=== PATIENT | male | born 1970 | race Hispanic/Latino ===

== ENCOUNTER 2018-05-20 10:09 | Emergency (ER) | payer BC, OTHER ==
[2018-05-20 10:14] VITALS: BMI 29.9
[2018-05-20 10:16] VITALS: RESP 17
--- NOTE | 2018-05-20 10:52 | ED PDOC ---
HPI: Headache Time Seen by Provider: 05/20/18 10:16 Chief Complaint (Nursing): Headache Chief Complaint (Provider): Headache History Per: Patient History/Exam Limitations: no limitations Additional Complaint(s): Patient is a 47 y/o male with history of cluster headaches and hypertension, who presents to the ED complaining of two separate problems: headache and anterior neck pain. Regarding the headaches, patient reports he used to see a neurologist regularly and multiple pior brain imaging including EEG, CT, and MRI which all were normal. Patient stopped having these symptoms about 4 years ago but still follows up with neurologist once a year. Last month he saw his neurologist and was discharged because he has been symptom free for x4 years. A week ago however he started to have headache at the back of his neck that radiates to the top of his head, and states that it is similar to the headaches he had in the past. He denies fever, URI, trauma, nausea, vomiting, photophobia , and sensitivity to sound. Regarding the neck pain, patient reports that it comes and goes, and is localized to the left side of the anterior neck. Patient states the pain lasts for a few minutes and resolves on its own sometimes it is associated with a headache sometimes its not. Patient wants to make sure its not heart related given family history of heart disease. He denies chest pain, shortness of breath, diaphoresis, or palpitations. Past Medical History Reviewed: Historical Data, Nursing Documentation, Vital Signs Vital Signs: Last Vital Signs Temp 98.5 F 05/20/18 10:20 Pulse 62 05/20/18 10:20 Resp 17 05/20/18 10:20 BP 133/84 05/20/18 10:20 Pulse Ox 99 05/20/18 10:20 - Medical History PMH: Anxiety, Gastritis, HTN, Migraine - Surgical History Surgical History: No Surg Hx - Family History Family History: States: [place] (Father - late 60s) - Social History Current smoker - smoking cessation education provided: No - Home Medications Home Medications: Ambulatory Orders Medication Instructions Recorded Alprazolam [Xanax] 0.25 mg PO PRN PRN 08/03/15 Dexlansoprazole [Dexilant] 30 mg PO DAILY 08/03/15 Lisinopril [Zestril] 20 mg PO DAILY 11/02/15 Nortriptyline Hydrochloride 10 mg PO DAILY 08/03/15 [Pamelor] amLODIPine [Norvasc] 10 mg PO DAILY 08/03/15 Aspirin [Aspirin EC] 81 mg PO DAILY #0 ect 08/04/15 - Allergies Allergies/Adverse Reactions: Allergies Allergy/AdvReac Type Severity Reaction Status Date / Time No Known Allergies Allergy Verified 11/09/14 21:03 Review of Systems ROS Statement: Except As Marked, All Systems Reviewed And Found Negative Constitutional: Negative for: Fever, Sweats Eyes: Negative for: Other (photophobia) ENT: Negative for: Other (sensitivity to sound) Cardiovascular: Positive for: Palpitations. Negative for: Chest Pain Respiratory: Negative for: Cough, Shortness of Breath Gastrointestinal: Negative for: Nausea, Vomiting Musculoskeletal: Positive for: Neck Pain Neurological: Positive for: Headache Physical Exam - Reviewed Nursing Documentation Reviewed: Yes Vital Signs Reviewed: Yes - Physical Exam Comments: GENERAL APPEARANCE: Patient is awake, alert, oriented x 3, in no acute distress. SKIN: Warm, dry; (-) cyanosis. EYES: (-) conjunctival pallor. ENMT: Mucous membranes moist. NECK: Supple, (-) thyromegaly, (-) masses, (-) tenderness, (-) stiffness, (-) lymphadenopathy, (-) JVD. CHEST AND RESPIRATORY: (-) rash, (-) chest wall tenderness. Lungs: (-) rales , (-) rhonchi, (-) wheezes, (-) rub; breath sounds equal bilaterally. HEART AND CARDIOVASCULAR: (-) irregularity; (-) murmur, (-) gallop, (-) rub. ABDOMEN AND GI: Soft; (-) distention, (-) tenderness, (-) palpable pulsatile mass. EXTREMITIES: (-) deformity; (-) edema, (-) calf tenderness. (+) distal pulses. NEURO AND PSYCH: Mental status as above. Cranial nerves grossly intact; strength symmetric. - Laboratory Results Result Diagrams: 05/20/18 11:10 05/20/18 12:10 - ECG O2 Sat by Pulse Oximetry: 99 (RA) Pulse Ox Interpretation: Normal Medical Decision Making Medical Decision Making: Time: 10:38 Impression: Headaches and neck pain Initial Plan: --EKG --CMP --Troponin I --CBC w/ diff --CXR Patient is refusing any analgesics for his headache states that he feels well at this time. CXR : NAD, as read by PA EKG : NSR at 53 bpm, T wave inversions in leads III and V1 which is old and not new compared to prior EKG on 08/03/15, as read by OTILIO Labs reviewed : trop (-) On re-evaluation, patient denies any chest pain, SOB. On exam, patient remains AAOx3, in no acute distress. Patient is cheerful and in good spirits. Repeat neuro exam shows no focal findings. VSS, patient is stable for discharge. Diagnostic results d/w the patient in great detail. Patient feels comfortable going home. Based on history, exam and diagnostic results, plan will be for outpatient follow up with pmd and his neurologist. Patient instructed to follow-up with pmd and neuro in 1-2 days without fail. Return to the emergency room at any time for any new or worsening symptoms. Patient states he fully agrees with and understands discharge instructions. States that he agrees with the plan and disposition. Verbalized and repeated discharge instructions and plan. I have given the patient opportunity to ask any additional questions. ----- Scribe Attestation: Documented by Arron Wright, acting as a scribe for Ana Rosa Yates PA-C. Provider Scribe Attestation: All medical record entries made by the Scribe were at my direction and personally dictated by me. I have reviewed the chart and agree that the record accurately reflects my personal performance of the history, physical exam, medical decision making, and the department course for this patient. I have also personally directed, reviewed, and agree with the discharge instructions and disposition. Disposition - Clinical Impression Clinical Impression: Headache, Neck pain - Patient ED Disposition Is Patient to be Admitted: No Counseled Patient/Family Regarding: Studies Performed, Diagnosis, Need For Followup - Disposition Disposition: Routine/Home Disposition Time: 12:30 Condition: STABLE Additional Instructions: Thank you for letting us take care of you today. You were treated for headache, neck pain. The emergency medical care you received today was directed towards the acute presenting symptoms. Return to the Emergency Department at any time if symptoms worsen, do not improve, or if any other problems arise. Please contact your primary care doctor and your neurologist in 2 days for re- evaluation and follow up. Bring any paperwork you were given at discharge with you along with any medications to your follow up visit. Our treatment cannot replace ongoing medical care by a primary care provider (PCP) outside of the emergency department. Thank you for allowing the [facility] team to be part of your care today. Instructions: Cluster Headache, Neck Pain Forms: [employer] (Kyrgyz) - PA / MANAGER UTILIZATION / Resident Statement MD/DO has reviewed & agrees with the documentation as recorded.
--- NOTE | 2018-05-20 11:56 | RAD ---
Date of service: 05/20/2018 PROCEDURE: CHEST RADIOGRAPH, 1 VIEW HISTORY: L side neck pain COMPARISON: 08/03/2015 FINDINGS: LUNGS: Clear. PLEURA: No pneumothorax or pleural fluid seen. CARDIOVASCULAR: Normal. OSSEOUS STRUCTURES: No significant abnormalities. VISUALIZED UPPER ABDOMEN: Normal. OTHER FINDINGS: None. IMPRESSION: No active disease.
[2018-05-20 11:59] LABS: BASO % 0.8 % (0.0-2.0); EOS # 0.3 K/uL (0.0-0.7); EOS % 5.1 % (0.0-4.0); HEMOGLOBIN 14.7 g/dL (12.0-18.0); LYMPH # 1.6 K/uL (1.0-4.3); LYMPH % 29.6 % (20.0-40.0); MEAN CELL VOLUME 92.6 fl (80.0-94.0); MEAN CORPUSCULAR HEMOGLOBIN 32.1 pg (27.0-31.0); MEAN CORPUSCULAR HGB CONC 34.6 g/dL (33.0-37.0); MONO # 0.4 K/uL (0.0-0.8); MONO % 7.6 % (0.0-10.0); NEUT % 56.9 % (50.0-75.0); NRBC % 0.1 % (0.0-0.0); RBC 4.58 Mil/uL (4.40-5.90); RED CELL DISTRIBUTION WIDTH 12.8 % (11.5-14.5); WHITE BLOOD COUNT 5.3 K/uL (4.8-10.8)
[2018-05-20 12:05] LABS: ALB/GLOB RATIO 1.4 (1.0-2.1); ALBUMIN 4.3 g/dL (3.5-5.0); ALT/SGPT 45 U/L (21-72); AST/SGOT 30 U/L (17-59); BLOOD UREA NITROGEN 12 mg/dl (9-20); CALCIUM 9.9 mg/dL (8.4-10.2); GFR AFRICAN-AMERICAN > 60; GFR NON-AFRICAN AMERICAN > 60
[2018-05-20 14:01] VITALS: BP 128/75; PULSE 76; TEMP 98; O2SAT 100
--- NOTE | 2018-05-20 22:45 | CARD ---
APPROVED REPORT Date of service: 05/20/2018 EKG Measurement Heart [id number] CT 188P21 [id number] <Conclusion> Sinus bradycardia Otherwise normal ECG
== END 2018-05-20 13:00 | disposition home or self-care (01) ==
LOC: H.ER 10:09
DX: R51 Headache (principal); M54.2 Cervicalgia; I10 Essential (primary) hypertension; Z79.82 Long term (current) use of aspirin

== ENCOUNTER 2018-06-29 18:26 | Emergency (ER) | payer OTHER ==
[2018-06-29 18:26] VITALS: BMI 29.9
[2018-06-29 19:00] VITALS: O2SAT 97
[2018-06-29 19:52] LABS: BASO % 0.6 % (0.0-2.0); EOS # 0.2 K/uL (0.0-0.7); EOS % 3.3 % (0.0-4.0); HEMOGLOBIN 14.9 g/dL (12.0-18.0); LYMPH # 2.2 K/uL (1.0-4.3); LYMPH % 31.2 % (20.0-40.0); MEAN CELL VOLUME 91.7 fl (80.0-94.0); MEAN CORPUSCULAR HEMOGLOBIN 32.5 pg (27.0-31.0); MEAN CORPUSCULAR HGB CONC 35.4 g/dL (33.0-37.0); MEAN PLATELET VOLUME 8.5 fl (7.2-11.7); MONO # 0.5 K/uL (0.0-0.8); MONO % 6.6 % (0.0-10.0); NEUT % 58.3 % (50.0-75.0); NRBC % 0.1 % (0.0-0.0); RBC 4.59 Mil/uL (4.40-5.90); RED CELL DISTRIBUTION WIDTH 12.6 % (11.5-14.5); WHITE BLOOD COUNT 6.9 K/uL (4.8-10.8)
[2018-06-29 20:02] LABS: ALB/GLOB RATIO 1.3 (1.0-2.1); ALBUMIN 4.3 g/dL (3.5-5.0); ALT/SGPT 68 U/L (21-72); AST/SGOT 50 U/L (17-59); BLOOD UREA NITROGEN 12 mg/dl (9-20); CALCIUM 9.5 mg/dL (8.4-10.2); GFR NON-AFRICAN AMERICAN > 60
[2018-06-29 20:03] LABS: PROTHROMBIN TIME 11.3 Seconds (9.8-13.1)
[2018-06-29 20:06] LABS: PARTIAL THROMBOPLASTIN TIME 33.4 Seconds (25.6-37.1)
--- NOTE | 2018-06-29 20:45 | ED PDOC ---
HPI: SOB/CHF/COPD Time Seen by Provider: 06/29/18 19:02 Chief Complaint (Nursing): Shortness Of Breath Chief Complaint (Provider): Shortness Of Breath and Headache History Per: Patient History/Exam Limitations: no limitations Onset/Duration Of Symptoms: Hrs (Today) Current Symptoms Are (Timing): Still Present Quality: Burning Pain Scale Rating Of: 4 Associated Symptoms: Anxiety Additional Complaint(s): Brian Lopez is a 47 year old male patient with past medical history of hypertension, migraine, anxiety and GERD who presents to the emergency department complaining of headache and anxiety onset today. Patient reports 4/10 burning pain from the back to the top of his head. He states that symptoms are similar to previous episode and that he gets them often at work. Patient further states he felt feverish at home and took a Motrin today prior to arrival at ED. He also reports a chest pain and shortness of breath but believes it might be because he feels anxious. Patient felt short of breath today and had an episode of chest pain that occurred last night which reports was similar to previous GERD but was resolved after taking Anti-acids. Patient's Neurologist, Dr. Holman, prescribed him 60 mg of Pamelor x1 week ago. He denies any current shortness of breath, nausea, vomiting, vision changes or other medical complaints. PMD: George Knapp Neurology: Master Holman Past Medical History Reviewed: Historical Data, Nursing Documentation, Vital Signs Vital Signs: Last Vital Signs Temp 98.1 F 06/29/18 18:37 Pulse 64 06/29/18 19:37 Resp 14 06/29/18 19:37 BP 136/90 06/29/18 19:37 Pulse Ox 97 06/29/18 19:37 - Medical History PMH: Anxiety, Gastritis, GERD, HTN, Migraine - Family History Family History: States: [place] (Father - late 60s) - Social History Current smoker - smoking cessation education provided: No Alcohol: None - Home Medications Home Medications: Ambulatory Orders Medication Instructions Recorded Alprazolam [Xanax] 0.25 mg PO PRN PRN 08/03/15 Dexlansoprazole [Dexilant] 30 mg PO DAILY 08/03/15 Lisinopril [Zestril] 20 mg PO DAILY 08/03/15 Nortriptyline Hydrochloride 10 mg PO DAILY 08/03/15 [Pamelor] amLODIPine [Norvasc] 10 mg PO DAILY 08/03/15 Aspirin [Aspirin EC] 81 mg PO DAILY #0 ect 08/04/15 - Allergies Allergies/Adverse Reactions: Allergies Allergy/AdvReac Type Severity Reaction Status Date / Time No Known Allergies Allergy Verified 11/09/14 21:03 Review of Systems ROS Statement: Except As Marked, All Systems Reviewed And Found Negative Constitutional: Positive for: Fever (subjective ) Eyes: Negative for: Vision Change Cardiovascular: Positive for: Chest Pain Respiratory: Negative for: Shortness of Breath Gastrointestinal: Negative for: Nausea, Vomiting Neurological: Positive for: Headache Psych: Positive for: Anxiety Physical Exam - Reviewed Nursing Documentation Reviewed: Yes Vital Signs Reviewed: Yes - Physical Exam Appears: Positive for: Well, No Acute Distress Head Exam: Positive for: ATRAUMATIC, NORMAL INSPECTION, NORMOCEPHALIC Skin: Positive for: Normal Color, Warm, Dry Eye Exam: Positive for: Normal appearance, EOMI, PERRL ENT: Positive for: Normal ENT Inspection Neck: Positive for: Normal, Painless ROM, Supple Cardiovascular/Chest: Positive for: Regular Rate, Rhythm. Negative for: Murmur Respiratory: Positive for: Normal Breath Sounds. Negative for: Respiratory Distress Gastrointestinal/Abdominal: Positive for: Normal Exam, Soft. Negative for: Tenderness Back: Positive for: Normal Inspection Extremity: Positive for: Normal ROM (upper and lower extremities). Negative for: Tenderness, Calf Tenderness, Deformity, Swelling Neurologic/Psych: Positive for: Alert, Oriented, Gait (steady). Negative for: Motor/Sensory Deficits, Aphasia, Facial Droop - Laboratory Results Result Diagrams: 06/29/18 19:48 06/29/18 19:48 - ECG Interpretation Of ECG: SR @ 74, PVC, no ST-T changes. O2 Sat by Pulse Oximetry: 97 (RA) Pulse Ox Interpretation: Normal - Radiology X-Ray: Interpreted by Me X-Ray Interpretation: No Acute Disease Medical Decision Making Medical Decision Making: Time: 19:02 Initial Impression: headache and anxiety Initial Plan: --CT head w/o contrast --EKG --CMP --Troponin --ED Urine Dipstick (POC) --CBC with differential --PTT --Prothrombin Time --CXR - two views (PA/LAT) [RAD] 22:[address] Knapp and he agreed to with decision to discharge home. Scribe Attestation: Documented by Dayne Cortez, acting as a scribe for Tiffany Sanchez MD. Provider Scribe Attestation: All medical record entries made by the Scribe were at my direction and personall y dictated by me. I have reviewed the chart and agree that the record accurately reflects my personal performance of the history, physical exam, medical decision making, and the department course for this patient. I have also personally directed, reviewed, and agree with the discharge instructions and disposition. Disposition - Clinical Impression Clinical Impression: Headache, Atypical chest pain - Disposition Referrals: George Knapp MD [Family Provider] - Disposition: Routine/Home Disposition Time: 23:02 Condition: GOOD Instructions: Headache, Adult, Chest Pain Forms: [employer] (Romanian)
[2018-06-29 23:17] VITALS: BP 127/83; PULSE 60; RESP 16; TEMP 98
--- NOTE | 2018-06-30 08:35 | RAD ---
Date of service: 06/29/2018 HISTORY: CP COMPARISON: Chest radiograph dated 05/20/2018 TECHNIQUE: Chest PA and lateral FINDINGS: LUNGS: No active pulmonary disease. PLEURA: No significant pleural effusion identified. No pneumothorax apparent. CARDIOVASCULAR: Normal. OSSEOUS STRUCTURES: No significant abnormalities. VISUALIZED UPPER ABDOMEN: Normal. OTHER FINDINGS: None. IMPRESSION: No active disease.
--- NOTE | 2018-06-30 09:28 | CARD ---
APPROVED REPORT Date of service: 06/29/2018 EKG Measurement Heart [id number] [id number] <Conclusion> Normal Sinus rhythm Normal ECG
--- NOTE | 2018-06-30 09:37 | CT ---
Date of service: 06/29/2018 PROCEDURE: CT HEAD WITHOUT CONTRAST. HISTORY: Headache COMPARISON: CT head dated 10/31/2012. TECHNIQUE: Axial computed tomography images were obtained through the head/brain without intravenous contrast. Radiation dose: Total exam DLP = 975.2 mGy-cm. This CT exam was performed using one or more of the following dose reduction techniques: Automated exposure control, adjustment of the mA and/or kV according to patient size, and/or use of iterative reconstruction technique. FINDINGS: HEMORRHAGE: No intracranial hemorrhage. BRAIN: No mass effect or edema. No atrophy or chronic microvascular ischemic changes. VENTRICLES: Unremarkable. No hydrocephalus. CALVARIUM: Unremarkable. PARANASAL SINUSES: Left maxillary sinus secretions. MASTOID AIR CELLS: Unremarkable as visualized. No inflammatory changes. OTHER FINDINGS: None. IMPRESSION: No acute intracranial pathology. No significant interval change.
== END 2018-06-29 23:16 | disposition home or self-care (01) ==
LOC: H.ER 18:26
DX: R07.9 Chest pain, unspecified (principal); R51 Headache; I10 Essential (primary) hypertension; J44.9 Chronic obstructive pulmonary disease, unspecified; R07.89 Other chest pain; Z79.82 Long term (current) use of aspirin

== ENCOUNTER 2018-08-16 02:11 | Emergency (ER) | payer OTHER ==
[2018-08-16 02:11] VITALS: BMI 29.9
--- NOTE | 2018-08-16 03:05 | ED PDOC ---
HPI: Abdomen Chief Complaint (Provider): abdominal pain History Per: Patient History/Exam Limitations: no limitations Onset/Duration Of Symptoms: Hrs Current Symptoms Are (Timing): Still Present Location Of Pain/Discomfort: LLQ Quality Of Discomfort: "Pain" Associated Symptoms: denies: Fever, Chills, Nausea, Vomiting, Diarrhea Last Bowel Movement: Yesterday Additional Complaint(s): 47 y/o male presents for evaluation of lower abdominal pain x 10 hours. Patient states pain initially began as cramps across lower abdomen, but has since localized to left lower quadrant. Patient states he thought it could be constip ation but took a stool softener and miralax without improvement of symptoms. Denies fever, nausea/vomiting, chest pain, shortness of breath, palpitations, urinary symptoms. <Mariah Mckeon - Last Filed: 08/16/18 04:52> <Fabricio Rucker - Last Filed: 08/16/18 05:59> Time Seen by Provider: 08/16/18 02:33 Chief Complaint (Nursing): Abdominal Pain Past Medical History Vital Signs: Last Vital Signs Temp 98.7 F 08/16/18 02:24 Pulse 77 08/16/18 02:24 Resp 18 08/16/18 02:24 BP 125/82 08/16/18 02:24 Pulse Ox 98 08/16/18 02:24 - Medical History PMH: Anxiety, Gastritis, GERD, HTN, Migraine - Family History Family History: States: [place] (Father - late 60s) <Mariah Mckeon - Last Filed: 08/16/18 04:52> Vital Signs: Last Vital Signs Temp 98.7 F 08/16/18 02:24 Pulse 77 08/16/18 02:24 Resp 18 08/16/18 02:24 BP 125/82 08/16/18 02:24 Pulse Ox 98 08/16/18 04:59 <Fabricio Rucker - Last Filed: 08/16/18 05:59> - Home Medications Home Medications: Ambulatory Orders Medication Instructions Recorded Alprazolam [Xanax] 0.25 mg PO PRN PRN 08/03/15 Dexlansoprazole [Dexilant] 30 mg PO DAILY 08/03/15 Lisinopril [Zestril] 20 mg PO DAILY 08/03/15 Nortriptyline Hydrochloride 10 mg PO DAILY 08/03/15 [Pamelor] amLODIPine [Norvasc] 10 mg PO DAILY 08/03/15 Aspirin [Aspirin EC] 81 mg PO DAILY #0 ect 08/04/15 Ciprofloxacin HCl [Cipro] 500 mg PO BID #14 tablet 08/16/18 Metronidazole [Flagyl] 500 mg PO BID #14 tab 08/16/18 - Allergies Allergies/Adverse Reactions: Allergies Allergy/AdvReac Type Severity Reaction Status Date / Time No Known Allergies Allergy Verified 11/09/14 21:03 Physical Exam - Reviewed Nursing Documentation Reviewed: Yes Vital Signs Reviewed: Yes - Physical Exam Appears: Positive for: Well, Non-toxic, No Acute Distress Head Exam: Positive for: ATRAUMATIC, NORMAL INSPECTION, NORMOCEPHALIC Skin: Positive for: Normal Color Eye Exam: Positive for: Normal appearance ENT: Positive for: Normal ENT Inspection Cardiovascular/Chest: Positive for: Regular Rate, Rhythm Respiratory: Positive for: Normal Breath Sounds Gastrointestinal/Abdominal: Positive for: Bowel Sounds, Soft, Tenderness (LLQ) Back: Positive for: Normal Inspection Extremity: Positive for: Normal ROM Neurologic/Psych: Positive for: Alert, Oriented (x3) <Mariah Mckeon - Last Filed: 08/16/18 04:52> - Laboratory Results Result Diagrams: 08/16/18 03:10 08/16/18 03:10 - ECG O2 Sat by Pulse Oximetry: 98 - Progress ED Course And Treament: -cbc -cmp -urinalysis -CT abd/pelvis Patient declines pain medication at this time <Mariah Mckeon - Last Filed: 08/16/18 04:52> - Laboratory Results Result Diagrams: 08/16/18 03:10 08/16/18 03:10 - Progress Re-evaluation Time: 05:57 Condition: Re-examined, Improved <Fabricio Rucker - Last Filed: 08/16/18 05:59> Medical Decision Making Medical Decision Making: Abd and Pelvis CT Findings: COMMENTS: Acute diverticulitis of the proximal sigmoid colon without perforation or abscess formation. Diffuse colonic diverticulosis. The liver is of uniform attenuation without mass or defect. There is no intra or extrahepatic biliary ductal dilatation. The spleen is normal. The gallbladder is within normal limits. The pancreas is of normal contour and attenuation characteristics. There is no evidence of adrenal mass. Both kidneys demonstrate prompt and equal nephrograms. The kidneys are normal in size, shape and configuration. There is no evidence of renal or ureteral mass. No renal or ureteral calculi are identified. There is no hydroureter or hydronephrosis. No evidence for appendicitis. No evidence for small or large bowel obstruction. There is no evidence of abdominal ascites or lymphadenopathy. Mild changes of central mesenteric panniculitis. There is no evidence of intrinsic or extrinsic bladder mass. There is no pelvic ascites or lymphadenopathy. Images of the lung bases show no evidence of pleural or parenchymal mass. There are no pleural effusions. The bony structures are free of lytic or blastic lesions. IMPRESSION: Acute proximal sigmoid diverticulitis without perforation or abscess lesion. <Fabricio Rucker - Last Filed: 08/16/18 05:59> Disposition - Patient ED Disposition Is Patient to be Admitted: No - Disposition Disposition Time: 05:00 Patient Signed Over To: Fabricio Rucker Handoff Comments: pending CT <Mariah Mckeon - Last Filed: 08/16/18 04:52> - Patient ED Disposition Is Patient to be Admitted: No Doctor Will See Patient In The: Office Counseled Patient/Family Regarding: Studies Performed, Diagnosis, Need For Followup - Disposition Disposition: Routine/Home Disposition Time: 06:00 <aFbricio Rucker - Last Filed: 08/16/18 05:59> - Clinical Impression Clinical Impression: Abdominal pain, Sigmoid diverticulitis - Disposition Referrals: Siva Schwarz MD [Staff Provider] - Condition: GOOD Additional Instructions: ELIO HORTON, thank you for letting us take care of you today. Your provider was Fabricio Rucker MD and you were treated for ABDOMINAL PAIN. The emergency medical care you received today was directed at your acute symptoms. If you were prescribed any medication, please fill it and take as directed. It may take several days for your symptoms to resolve. Return to the Emergency Department if your symptoms worsen, do not improve, or if you have any other problems. Please contact your doctor or call one of the physicians/clinics you have been referred to that are listed on the Patient Visit Information form that is inc luded in your discharge packet. Bring any paperwork you were given at discharge with you along with any medications you are taking to your follow up visit. Our treatment cannot replace ongoing medical care by a primary care provider outside of the emergency department. Thank you for allowing the [facility] team to be part of your care today. If you had an X-Ray or CT scan: A Radiologist will review the ED reading if any change in treatment is needed we will contact you. If you had a blood, urine, or wound culture: It will take several days for the results, if any change in treatment is needed we will contact you. If you had an STI test: It will take 48 hours for the results. Please call after 1 week if you have not heard back. Prescriptions: Ciprofloxacin HCl [Cipro] 500 mg PO BID #14 tablet Metronidazole [Flagyl] 500 mg PO BID #14 tab Instructions: Diverticulitis Forms: [employer] (American)
[2018-08-16 03:16] LABS: BASO # 0.1 K/uL (0.0-0.2); BASO % 0.7 % (0.0-2.0); EOS # 0.3 K/uL (0.0-0.7); HEMOGLOBIN 14.8 g/dL (12.0-18.0); LYMPH % 24.9 % (20.0-40.0); MEAN CELL VOLUME 94.6 fl (80.0-94.0); MEAN CORPUSCULAR HEMOGLOBIN 31.8 pg (27.0-31.0); MEAN CORPUSCULAR HGB CONC 33.6 g/dL (33.0-37.0); MEAN PLATELET VOLUME 8.7 fl (7.2-11.7); MONO # 0.8 K/uL (0.0-0.8); MONO % 9.9 % (0.0-10.0); NEUT # 4.8 K/uL (1.8-7.0); NEUT % 60.5 % (50.0-75.0); NRBC % 0.1 % (0.0-0.0); RBC 4.65 Mil/uL (4.40-5.90); RED CELL DISTRIBUTION WIDTH 12.6 % (11.5-14.5)
[2018-08-16 03:18] LABS: URINE BILIRUBIN NEGATIVE (NEGATIVE); URINE BLOOD SMALL (NEGATIVE); URINE CLARITY SLIGHTY-CLOUDY (Clear); URINE COLOR YELLOW (YELLOW); URINE GLUCOSE (UA) NEG (Normal); URINE LEUKOCYTE ESTERASE NEG Leu/uL (Negative); URINE PROTEIN NEGATIVE (NEGATIVE); URINE UROBILINOGEN 0.2-1.0 mg/dL (0.2-1.0)
[2018-08-16 03:25] LABS: ALB/GLOB RATIO 1.4 (1.0-2.1); ALBUMIN 4.5 g/dL (3.5-5.0); ALT/SGPT 45 U/L (21-72); AST/SGOT 34 U/L (17-59); BLOOD UREA NITROGEN 10 mg/dl (9-20); CALCIUM 9.7 mg/dL (8.4-10.2); GFR NON-AFRICAN AMERICAN > 60
[2018-08-16] MEDS ORDERED: Iohexol 300 100 ML IJ ONE (04:10)
[2018-08-16] MEDS ORDERED: Sodium Chloride 0.9% 50 ML IV ONE (04:10)
[2018-08-16 06:14] VITALS: BP 128/73; PULSE 81; RESP 17; TEMP 98.4; O2SAT 99
--- NOTE | 2018-08-16 10:21 | CT ---
Date of service: 08/16/2018 PROCEDURE: CT Abdomen and Pelvis with contrast HISTORY: LLQ pain COMPARISON: None available. TECHNIQUE: CT scan of the abdomen and pelvis was performed after administration of intravenous contrast. Oral contrast was not administered. Coronal and sagittal reformatted images were obtained. Contrast dose: 95 mL Omnipaque 300 Radiation dose: Total exam DLP = 810.93 mGy-cm. This CT exam was performed using one or more of the following dose reduction techniques: Automated exposure control, adjustment of the mA and/or kV according to patient size, and/or use of iterative reconstruction technique. FINDINGS: LOWER THORAX: The visualized lungs are clear. LIVER: Mild hepatomegaly with homogeneous enhancement. Fatty liver. No gross lesion or ductal dilatation. GALLBLADDER AND BILE DUCTS: Well distended. No calcified gallstones, wall thickening or pericholecystic fluid. PANCREAS: Normal in size with homogeneous enhancement. No gross lesion or ductal dilatation. SPLEEN: Normal in size and appearance. ADRENALS: No discrete nodule. KIDNEYS AND URETERS: Normal in size with homogeneous enhancement. No hydronephrosis. No solid mass. VASCULATURE: No aortic aneurysm. BOWEL: Evaluation of the bowel is limited in the absence of oral contrast. The small bowel loops are normal in caliber. There is left colonic diverticulosis peer there is mild circumferential mural thickening in the mid descending colon with significant pericolonic inflammatory changes. No micro perforation or abscess. APPENDIX: Normal appendix. PERITONEUM: No free fluid. No free air. LYMPH NODES: No enlarged lymph nodes. BLADDER: Partially decompressed. REPRODUCTIVE: The prostate gland is normal in size. BONES: No acute fracture. Within normal limits for the patient's age. OTHER FINDINGS: None. IMPRESSION: Findings are most compatible with segmental acute diverticulitis in the mid descending colon. No micro perforation or abscess. A preliminary report was provided by [employer].
== END 2018-08-16 06:10 | disposition home or self-care (01) ==
LOC: H.ER 02:11
DX: R10.32 Left lower quadrant pain (principal); K57.32 Diverticulitis of large intestine without perforation or abscess without bleeding
CPT/HCPCS: 74177; 80053; 81003; 85025; 99284; Q9967